=== PATIENT | female | born 2000 | race Two or more races ===

== ENCOUNTER 2024-11-22 16:34 | Observation (INO) | payer MEDICAID, SELFPAY ==
[2024-11-22 16:41] VITALS: BMI 27.9
--- NOTE | 2024-11-22 17:22 | PD.LDPN ---
Documentation for date of: 11/22/24 OB Labor Progress Note Status status: Category l Assessment and Plan Comments: Sia is a 24yo with SIUP at 36w2d presenting to L&D for vaginal leakage of fluid. She was sent for evaluation by Dr. Devries after being seen in clinic today and noting that she had been leaking fluid for the past 4 days. She notes no painful/regular ctx, no vaginal bleeding. Normal movement. Only other concern is ongoing LBP related to and some pelvic pressure. Current : Insufficient care Previous pregnancies: history of 2 sections done in [place] ROS negative other than what was described above. Vitals wnl, afebrile General: well developed, well nourished, no acute distress, conversant Cardiac: normal heart rate Lungs: breathing without distress Abdomen: soft, gravid, non-tender, no rebound or guarding Extremities: no pain with palpation of calves Per RN: No gross leakage of fluid or pooling with collection of AmniSure NST: Reactive, +accels, no decels, mod minna [place]: no regular ctx pattern Bedside ultrasound performed by Dr. Lockett: SIUP with cephalic presentation, +FCA, active FM, anterior placenta, DESHAWN 9cm Labs: AmniSure ROM Test: Negative Assessment: Sia is a 24yo with SIUP at 36w2d with no evidence of ROM, normal physiologic changes of . Vitals wnl, benign exam. Reassuring status based on NST/DESHAWN (modified BPP). Plan: -Discussed findings and diagnosis with patient, answered all questions to her apparent satisfaction -Continue routine follow up with OBGYN within [address] Devries will be notified of patient's discharge from triage so that she can schedule RLTCS at appropriate interval. -Discussed return precautions Oksana Lockett MD
[2024-11-22 17:27] LABS: ROM Kit Lot # 57809118; ROM Swab Mixed By: NUNEE1; Rupture of Fetal Membranes Negative (Negative); Swb Mxed in Solvent 1 min? Yes
== END 2024-11-22 17:50 | disposition home or self-care (01) ==
PROVIDERS: Admitting Provider Obstetrics & Gynecology; Visit Provider Obstetrics & Gynecology
DX: O26.893 Other specified pregnancy related conditions, third trimester (principal); M54.50 Low back pain, unspecified; R10.2 Pelvic and perineal pain; Z3A.36 36 weeks gestation of pregnancy
CPT/HCPCS: 59025; 59899; 84112

== ENCOUNTER 2024-12-14 10:16 | Inpatient (IN) | payer MEDICAID, SELFPAY ==
[2024-12-14] VITALS (16 sets, daily range): BP systolic 100–127; BP diastolic 58–82; PULSE 58–86; RESP 12–19; TEMP 36.4–36.9; O2SAT 95–100; BMI 28.5
[2024-12-14] MEDS: RINGERS LACTATED 1000 ML 1,000 ML 100 ML IV (11:45)
--- NOTE | 2024-12-14 11:46 | PD.LDHP ---
Documentation for date of: 12/14/24 OB Labor/Induct. HPI History of Present Illness History of sections: Yes (X2) History of present illness: 24 y/o @39w4d, here for repeat Csection . Patient denied any contraction lekaing bleeding , endorses movement appropriate. Pt has ah/o 2 previous Csections History of Present Dating criteria: LMP confirmed by 1st trimester US Adequate Care: No Abnormal ultrasound findings: anatomy wnl, posterior placenta Labs Narrative: GBS -ve GTT -ve NIPT normal Past Medical History Surgical History SURGICAL: Positive Section (X2) Meds Home Medications and Allergies Allergies Allergy/AdvReac Type Severity Reaction Status Date / Time No Known Allergies Allergy Verified 12/14/24 11:52 OB Exam Physical Exam Vital signs: Pulse BP 81 113/58 L 12/14/24 11:19 12/14/24 11:19 Constitutional Constitutional: no acute distress Routine HEENT Exam Head: Present normocephalic and atraumatic Eye: Present EOMI and PERRL ENT: Present mucous membranes moist Routine Neck Exam Neck: Present supple and trachea midline Routine Cardiovascular Exam Cardiovascular: Present RRR Routine Abdominal Exam Abdominal: Present soft and normoactive bowel sounds Detailed Labor and Delivery Exam Comments: closed FHT Cat 1 Routine Extremities Exam Extremities: Present full ROM Routine Skin Exam Skin: Present intact, dry and warm Routine Neurological Exam Neurological: Present alert, oriented X3 and CN II-XII intact Routine Psychiatric Exam Psychiatric: Present normal affect and normal thought process OB Results Impressions Impression: 24 y/o @39w4d, per 1st Trimester US , her efor RLTCS VSS Hb pending Posterior placenta GTT wnl prev Csection x2 OB Assessment & Plan Additional Plan Additional Plan Comment: admit to L&D RLTCS Antibiotic prophylaxis DVT prophylaxis
[2024-12-14 12:08] LABS: Basophils % (Auto) 0 % (0-2.5); Eosinophils # (Auto) 0.1 Thou/mm3 (0.0-0.5); Eosinophils % (Auto) 1 % (0-10); Hematocrit 32.6 % (36.0-46.0); Hemoglobin 10.9 g/dL (12.0-16.0); Immature Granulocytes % (Auto) 1 % (0-0); Immature Granulocytes Auto 0.09 Thou/mm3 (0.00-0.00); Lymphocytes % (Auto) 21 % (10-50); Mean Corpuscular HGB Conc 33.4 g/dl (31.0-37.0); Mean Corpuscular Hemoglobin 26.1 pg (25.0-35.0); Mean Corpuscular Volume 78 fL (80-100); Monocytes # (Auto) 0.6 Thou/mm3 (0.0-0.8); Monocytes % (Auto) 6 % (0-12); Neutrophils % (Auto) 71 % (37-80); Nucleated Red Blood Cell % 0 /100 WBC (0); Platelet Count 255 Thou/mm3 (140-440); RDW Standard Deviation 38.9 fL (36.4-46.3); Red Blood Count 4.17 Miln/mm3 (4.00-5.20); White Blood Count 9.8 Thou/mm3 (3.6-11.0)
[2024-12-14] MEDS: CITRIC ACID/SODIUM CITR 15 ML UDC (BICITRA) 30 ML PO (12:25)
[2024-12-14] MEDS: ceFAZolin/D5W 2 GM IV 2 GM/100 ML BAG IV (12:25)
[2024-12-14] MEDS: FAMOTIDINE INJ 10 MG/ML VIAL 2 ML 20 MG IV (12:25)
[2024-12-14 12:43] LABS: Amphetamine/Metham Scrn,Ur OB Negative (Negative); Benzoylecgonine Screen, Ur OB Negative (Negative); Opiate Screen,Urine OB Negative (Negative); THC Screen,Urine OB Negative (Negative)
[2024-12-14 13:00] LABS: Syphilis Nonreactive (Nonreactive)
[2024-12-14] MEDS: ONDANSETRON INJ 2 MG/ML INJ 2 ML 4 MG IV ×2 (14:04→18:40)
--- NOTE | 2024-12-14 15:37 | PD.GYNPROC ---
Operative Note - [employer] Procedure Date of procedure: 12/14/24 Procedure Performed: repeat low transverse Csection Indication: previous Csection x2 Pre-Op diagnosis: same Post-Op diagnosis: same Anesthesia type: Spinal Procedure description: Informed consent was obtained and the patient was taken to the operating room.? Identity was confirmed by double identifiers and she was placed on the operating table.The abdomen and perineum were prepped in the usual sterile fashion and a Mohamud catheter was placed to continuous drainage.? Sterile drapes were applied.??A Pfannenstiel skin incision was made with a scalpel and carried to the subcutaneous fat up to the rectus fascia.? The rectus fascia was incised on either side of the midline and the incisions were extended bilaterally.? The fascia was gently dissected off the ventral surface of the rectus muscle both superiorly and inferiorly. Carefully a peritioneal window created hysterotomy incision made and extended bluntly with finger. Rupture of membranes revealed clear fluid. The baby was found vertex presentation and was delivered via vertex. . The umbilical cord , was doubly clamped, divided and the was handed over to the waiting team.? True knot seen with 2 rounds of nuchal cord placenta delivered by controlled cord traction . The interior of the uterus was now thorougly cleaned of all blood and debris and membranes.?The? hysterotomy was closed using 0 vicryl suture in double layers. Once the repair was completed the hysterotomy was inspected, was noted to be adequately hemostatic . Muscle oozing stopped by bovie. The rectus fascia was repaired using Vicryl 0 in a running fashion.? The subcutaneous layer was now, approximated with 3-0 vicryl in double layers.? All bleeding points were cauterized using the Bovie.?The skin was closed using 4-0 Monocryl in a subcuticular fashion.? The skin was cleaned and a sterile dressing was applied. The patient was now undraped, the abdomen and back were thoroughly cleaned and she was now transferred to the recovery room in a stable Estimated blood loss (ml): 400 Surgical staff Operation Date: 12/14/24 12:45 Case Staff FACILITY ENGINEER: Moira Miller RN First Assistant: Yessy Caldernó Diagnosis Problem List Completed Was Problem List Reviewed/Reconciled?: Yes
--- NOTE | 2024-12-14 15:41 | PD.LDDELS ---
Data ([facility]) Data Hx Section: Yes (X2) : 3 Para: 2 Term: 2 : 0 : 0 Delivery Data ([facility]) Labor Data ROM Date: 12/14/24 ROM Time: 12:50 Rupture Type: AROM Amniotic Fluid: Thin Meconium Delivery Data Labor Onset Stage 1 Date: 12/14/24 Labor Onset Stage 1 Time: 12:50 Labor Onset Stage 2 Date: 12/14/24 Labor Onset Stage 2 Time: 12:50 Delivery Date: 12/14/24 Delivery Time: 12:50 Gestational age (weeks): 39 Gestational age (days): 4 Placenta Delivery Date: 12/14/24 Placenta Delivery Time: 12:51 Delivered by: Олег Devries Delivery nurse: Alexa Lutz Other staff at delivery: 2nd Nurse Other staff at delivery: 2nd Nurse Other staff at delivery: RT Other staff at delivery: Shravanub Other staff at delivery: [place] Other staff at delivery: Mony Alvarado Other staff at delivery: Nigel Other staff at delivery: ayush Delivery Method Delivery: Delivery Type: Repeat Anesthesia Type Primary Anesthesia: Spinal EBL Estimated blood loss (ml): 400 Data ([facility]) [place] Data Gender: Female Infant Weight Grams: 3660 1 Minute Total: 8 5 Minute Total: 9
[2024-12-14] MEDS: OXYTOCIN in NS 20 units 20 UNIT/1,000 ML BAG 125 UNIT IV (18:40)
[2024-12-14 18:45] LABS: Basophils % (Auto) 0 % (0-2.5); Eosinophils % (Auto) 0 % (0-10); Hemoglobin 11.3 g/dL (12.0-16.0); Immature Granulocytes % (Auto) 1 % (0-0); Immature Granulocytes Auto 0.11 Thou/mm3 (0.00-0.00); Lymphocytes # (Auto) 1.2 Thou/mm3 (1.0-4.8); Lymphocytes % (Auto) 7 % (10-50); Mean Corpuscular HGB Conc 33.2 g/dl (31.0-37.0); Mean Corpuscular Hemoglobin 25.7 pg (25.0-35.0); Mean Corpuscular Volume 77 fL (80-100); Monocytes # (Auto) 0.2 Thou/mm3 (0.0-0.8); Monocytes % (Auto) 1 % (0-12); Neutrophils % (Auto) 91 % (37-80); Nucleated Red Blood Cell % 0 /100 WBC (0); Platelet Count 240 Thou/mm3 (140-440); RDW Standard Deviation 38.8 fL (36.4-46.3); White Blood Count 16.4 Thou/mm3 (3.6-11.0)
[2024-12-15 01:45] VITALS: BP 102/56; PULSE 60; RESP 16; TEMP 36.8; O2SAT 96
[2024-12-15 05:25] VITALS: BP 91/52; PULSE 75; RESP 18; TEMP 36.5; O2SAT 97
[2024-12-15 07:45] VITALS: BP 93/56; PULSE 77; RESP 17; TEMP 36.4; O2SAT 97
[2024-12-15] MEDS: IBUPROFEN TAB 400 MG TABLET 800 MG PO (08:21)
--- NOTE | 2024-12-15 09:47 | ESPR_ITS ---
Subjective Subjective Interval history: POD #1 after a scheduled repeat LTCS , doing well , voiding and passing flatus , lochia average Exam Vital Signs Temp Pulse Resp BP Pulse Ox O2 Del Method 97.6 F 77 17 93/56 L 97 Room Air 12/15/24 07:45 12/15/24 07:45 12/15/24 07:45 12/15/24 07:45 12/15/24 07:45 12/15/24 07:45 Narrative Exam abdomen soft , BS present , dressing C, D and intact No guarding or rigidity Constitutional Constitutional: no acute distress Routine Respiratory Exam Respiratory: Present chest non-tender, lungs clear, normal breath sounds, no resp distress and CTA bilaterally Routine Cardiovascular Exam Cardiovascular: Present RRR Routine Abdominal Exam Abdominal: Present soft and normoactive bowel sounds Routine Extremities Exam Extremities: Present full ROM, pulses intact and normal capillary refill Comments: no calf tenderness Routine Skin Exam Skin: Present intact and normal turgor Routine Neurological Exam Neurological: Present alert, oriented X3 and CN II-XII intact Routine Psychiatric Exam Psychiatric: Present normal affect, cooperative and good insight Objective Labs 12/14/24 18:11 Labs: Laboratory Results - last 24 hr 12/14/24 12/14/24 12/14/24 11:50 12:02 18:11 WBC 9.8 16.4 H D RBC 4.17 4.40 Hgb 10.9 L 11.3 L Hct 32.6 L 34.0 L MCV 78 L 77 L MCH 26.1 25.7 MCHC 33.4 33.2 RDW Std Deviation 38.9 38.8 Plt Count 255 240 Neut % (Auto) 71 91 H Lymph % (Auto) 21 7 L [place] % (Auto) 6 1 Eos % (Auto) 1 0 Baso % (Auto) 0 0 Neut # (Auto) 7.0 15.0 H Lymph # (Auto) 2.0 1.2 [place] # (Auto) 0.6 0.2 Eos # (Auto) 0.1 0.0 Baso # (Auto) 0.0 0.0 Immature Gran # (Auto) 0.09 H 0.11 H Absolute Nucleated RBC 0.00 0.00 Immature Gran % 1 H 1 H Nucleated RBC % 0 0 Urine Opiates Screen Negative U Amphetamin/Meth Scrn Negative U Cocaine Metab Screen Negative U Marijuana (THC) Screen Negative Syphilis Serology Nonreactive Blood Type A Positive Antibody Screen NEGATIVE Blood Bank Wristband ID Yes Impressions Impression: Routine post op care POD #1 after a scheduled repeat LTCS Assessment & Plan Assessment Comment Assessment comment: routine POD #1 exam and care Time Spent With Patient Time: Total time spent is greater than 50% in coordination of care (as documented) at patient's floor/unit and/or counseling patient: Time with patient: 25 - 35 minutes
[2024-12-15 11:25] VITALS: BP 96/57; PULSE 84; RESP 15; TEMP 36.4; O2SAT 98
[2024-12-15 16:45] VITALS: BP 114/72; PULSE 69; RESP 15; TEMP 36.9; O2SAT 99
[2024-12-15 19:55] VITALS: BP 111/72; PULSE 75; RESP 16; TEMP 37; O2SAT 97
[2024-12-16 03:20] VITALS: BP 106/67; PULSE 76; RESP 18; TEMP 36.7; O2SAT 97
[2024-12-16 08:05] VITALS: BP 117/68; PULSE 81; RESP 17; TEMP 36.9; O2SAT 97
--- NOTE | 2024-12-16 10:13 | CHAP ---
Patient was visited by the Spiritual Care Volunteer who prayed for them. (Volunteer was in the hospital from c 10:00-11:00)
--- NOTE | 2024-12-16 10:46 | PC.CM ---
Patient is a 24 year-old female who presents to the hospital to deliver her baby girl, Lazara Almeida. ASW received a referral for late to care at 20 weeks. Sabrina MUHAMMAD made [id number] contact with patient. ASW introduced self, role, and reason for visit. Patient appeared alert and oriented to self, location, and situation.?Patient was pleasant and engaged in initial assessment. Patient reports she lives with her /father of baby (FOB), Addison Almeida and her two other children 8 year-old son and 2 year-old son. Patient reports she came to the [place] approximately 4 months ago from [place]. Patient reports she was late to care because she did not know she was until she was 20 weeks but when she found out she was she received regular care. Patient established care with [facility]. Patient reports she has support by her and his family. Patient does not receive any WIC/SNAP/CashAid. Patient reports to having all the supplies she needs for her new born. ASW provided psychoeducation regarding baby blues and Post- Depression, as well as counseling groups at [facility]. SW provided community resources: Warm Line and Crisis Line. ASW provided update to bedside DAKOTA Garcia.
--- NOTE | 2024-12-16 12:06 | PD.LDDS ---
DS: Providers Provider Date of admission: 12/14/24 10:16 Primary care physician: Physician No Primary/Family Admitting Provider: Олег Devries MD Attending Provider on Admission: Олег Devries MD Consults: 12/14/24 12:28 Referral Routine Comment: Attending Provider on DC: Charo Romano MD Discharging Provider: Charo Romano MD Anticipated date of discharge: 12/16/24 DS: Diagnosis Discharge Diagnosis (1) Previous section complicating : Status: Acute (2) Delivery by section: Status: Acute Problem List Completed Was Problem List Reviewed/Reconciled?: Yes Summary/Hosp Course Brief History: 24 y/o @39w4d, here for repeat Csection . Patient denied any contraction lekaing bleeding , endorses movement appropriate. Pt has ah/o 2 previous Csections POD #2 and doing well Peripartum Data Delivery Method: Low Transverse Procedures: Procedures Operation Date: 12/14/24 12:45 Actual Procedure Side Surgeon p in OB Олег Devries MD complications: none Status at Discharge Cognitive/behavioral status at discharge: normal Functional status at discharge: independent ambulation Overall status at discharge: patient is back to baseline Time Spent with Patient Time attestation: Total time spent providing and/or coordinating discharge services: Time spent: Less than 30 minutes Specific discharge activities: wound care post and post op care Exam Vital Signs Temp Pulse Resp BP Pulse Ox O2 Del Method 98.4 F 81 17 117/68 97 Room Air 12/16/24 08:05 12/16/24 08:05 12/16/24 08:05 12/16/24 08:05 12/16/24 08:05 12/16/24 08:05 Narrative Exam routine post op and post care Constitutional Constitutional: no acute distress Routine Neck Exam Neck: Present supple and full ROM Routine Respiratory Exam Respiratory: Present chest non-tender, lungs clear, normal breath sounds, no resp distress and CTA bilaterally Routine Cardiovascular Exam Cardiovascular: Present RRR Routine Abdominal Exam Abdominal: Present soft, normoactive bowel sounds and tenderness Comments: none Incision C,D and intact and appropriately tender No fundal tenderness Routine Extremities Exam Extremities: Present full ROM, pulses intact and calf tenderness (none ) Routine Skin Exam Skin: Present intact and normal turgor Routine Neurological Exam Neurological: Present alert, oriented X3, CN II-XII intact and vision grossly intact Routine Psychiatric Exam Psychiatric: Present normal affect, normal thought process, cooperative, good insight and good judgment Discharge Plan Plan Patient Disposition: HOME (Self Care) Disposition Comment: doing well Patient condition on transfer: Stable Prescriptions/Referrals Prescriptions/Med Rec: New acetaminophen 325 mg Tablet 650 mg PO Q4H PRN (Reason: See Comments) Qty: 30 0RF hydrocodone-acetaminophen 5-325 mg tablet 1 tab PO Q6H MDD 4 PRN (Reason: pain) Qty: 14 0RF ibuprofen 600 mg tablet 600 mg PO Q6H PRN (Reason: pain) Qty: 30 0RF Continued vit-iron fum-folic ac 60-0.8 mg tablet 1 tab PO QDAY Referrals: No Primary/Family,Physician [Primary Care Provider] - Patient/Caregiver Discharge Instructions Discharge Activity: activity as tolerated and other Other Discharge Activity Instructions:: pelvic rest x 6 weeks Regular diet ED precautions for wound problems , fever, vaginal bleeding follow up her ob in 2 weeks Education Materials: C Section Dc Print Language: Martiniquais Stand Alone Forms: Ava Award Info., Patient Portal Info Letter Discharge Order Discharge Orders: Discharge (Routine); Ordered 12/16/24 Ordered By: Charo Romano Planned Discharge Date 12/16/24
== END 2024-12-16 14:50 | disposition home or self-care (01) | DRG 540 ==
LOC: S4SX 10:19 → S4NX 12:33
PROVIDERS: Admitting Provider Student in an Organized Health Care Education/Training Program; Visit Provider Student in an Organized Health Care Education/Training Program
PROC: 10D00Z1 Extraction of Products of Conception, Low, Open Approach (ICD-10-PCS; CPT 59514; principal; 2024-12-14 12:30)
DX: O34.211 Maternal care for low transverse scar from previous cesarean delivery (principal); Z3A.39 39 weeks gestation of pregnancy; O77.0 Labor and delivery complicated by meconium in amniotic fluid; Z37.0 Single live birth; O69.81X0 Labor and delivery complicated by cord around neck, without compression, not applicable or unspecified
CPT/HCPCS: 36415; 80307; 85025; 86780; 86850; 86900; 86901; A4649; J0689; J1100; J2210; J2371; J2405; J2590; J3490; J7120; A9270